=== PATIENT | male | born 1970 | race Caucasian/White ===

== ENCOUNTER 2018-07-07 20:56 | Inpatient (IN) | payer BC ==
[~2018-07-07] VITALS: Ht 180.3 cm; Wt 80.0 kg
--- NOTE | 2018-07-07 21:05 | NUR ---
BIB [facility] FOR ETOH INTOXICATION, PATIENT STATED HAD TOO MUCH TO DRINK, AND HAD A SLIP AND FALL. PATIENT STATES DID NOT HIT HIS HEAD, PATIENT DENIES LOSS OF CONSCIOUSNESS.
[2018-07-07] MEDS ORDERED: AMLO10TA7 PO (21:08)
[2018-07-07] MEDS ORDERED: ONDANSETRON 4 MG/2 ML VIAL IV ONE (21:30)
[2018-07-07] MEDS ORDERED: IV NORMAL SALINE 1000 ML BAG IV ONE (21:30)
[2018-07-07 21:31] LABS: BASOPHILS # (AUTO) 0.1 K/uL (0.0-8.0); BASOPHILS % (AUTO) 0.4 % (0.0-2.0); EOSINOPHILS % (AUTO) 0.2 % (0.0-7.0); HEMATOCRIT 43.4 % (36.7-47.1); HEMOGLOBIN 14.5 g/dL (12.5-16.3); LYMPHOCYTES # (AUTO) 2.5 K/uL (20.0-40.0); LYMPHOCYTES % (AUTO) 17.9 % (20.5-51.5); MEAN CORPUSCULAR HEMOGLOBIN 28.5 uug (23.8-33.4); MEAN CORPUSCULAR HGB CONC 33 g/dL (32.5-36.3); MEAN CORPUSCULAR VOLUME 85.1 fL (73.0-96.2); MONOCYTES # (AUTO) 0.6 K/uL (2.0-10.0); MONOCYTES % (AUTO) 4.1 % (0.0-11.0); NEUTROPHILS # (AUTO) 10.9 K/uL (1.8-8.9); NEUTROPHILS % (AUTO) 77.4 % (38.5-71.5); PLATELET COUNT (AUTO) 233 K/uL (152-348); RED BLOOD CELL COUNT(AUTO) 5.09 MIL/uL (4.06-5.63)
[2018-07-07] MEDS ORDERED: ONDANSETRON 4 MG/2 ML VIAL ONE (21:35)
[2018-07-07 21:40] LABS: CREATININE 0.9 mg/dL (0.6-1.3); POTASSIUM 3.3 mmol/L (3.5-5.1)
[2018-07-07 21:46] LABS: BILIRUBIN,DIRECT 0.1 mg/dL (0.0-0.2); BILIRUBIN,TOTAL 0.2 mg/dL (0.2-1.0); TOTAL PROTEIN, SERUM 7.7 g/dL (6.4-8.2)
--- NOTE | 2018-07-07 21:49 | NUR ---
PATIENT RETURNED FROM CT SCAN.
--- NOTE | 2018-07-07 21:50 | NUR ---
PLACED PATIENT BACK ON MONITOR AND PULSE OX.
[2018-07-07] MEDS ORDERED: MORPHINE SULFATE 2 MG/1 ML DISP.SYRIN ONE (21:54)
[2018-07-07] MEDS ORDERED: MORPHINE SULFATE 2 MG/1 ML DISP.SYRIN IV ONE (22:00)
--- NOTE | 2018-07-07 22:07 | NUR ---
PATIENT TAKEN BACK TO CT SCAN AT THIS TIME.
[2018-07-07] MEDS ORDERED: OMEP20CA10 PO (22:40)
--- NOTE | 2018-07-07 22:41 | NUR ---
PATIENT RETURNED FROM CT SCAN, PLACED PATIENT ON PULSE OX AND MONITOR.
[2018-07-08] MEDS ORDERED: ONDANSETRON 4 MG/2 ML VIAL IV PRN (00:15)
[2018-07-08] MEDS ORDERED: LORAZEPAM 2 MG/1 ML VIAL IV PRN (00:15)
[2018-07-08] MEDS ORDERED: ACETAMINOPHEN 325 MG TABLET PO PRN (00:15)
--- NOTE | 2018-07-08 00:15 | NUR ---
Pt. admitted to TELE , under care of Dr. WILSON Belongs List completed.
--- NOTE | 2018-07-08 00:30 | NUR ---
RECEIVED PT FROM ER VIA [facility]. DX: LEFT HIP FRACTURE. UNDER NATALI WILSON DISTRIBUTION COLLECTION OPERATOR. BELONGING LIST DONE. ADMISSION PROCESS AND CARE PLAN INITIATED. INTERMEDIATE ASSESSMENT DONE. RECEIVED PT WITH CERVICAL COLLAR. PT SHOW SNO ACUTE DISTRESS. WILL CONTINUE TO MONITOR.
[2018-07-08 01:05] VITALS: BP 136/89
[2018-07-08] MEDS: POTASSIUM CHLORIDE 50 ML IV SCH ×2 (01:18→03:03)
[2018-07-08] MEDS: IV NS 1000 ML 1,000 ML IV PRN ×2 (01:18→17:45)
[2018-07-08] MEDS: MORPHINE SULFATE 2 MG/1 ML DISP.SYRIN IV PRN ×2 (01:31→06:37)
[2018-07-08] MEDS ORDERED: POTASSIUM CHLORIDE 0 ML ONE (01:52)
[2018-07-08 05:35] VITALS: BP 113/76
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
--- NOTE | 2018-07-08 06:27 | NUR ---
PT SLEPT INTERMITTENTLY. PT WAKING UP AND ASKING WHAT HAPPENED TO HIM. PT IN NO ACUTE DISTRESS BUT COMPLAINING OF LEFT HIP PAIN. MORPHINE GIVEN TWICE ON MY SHIFT FOR 10/10 PAIN SCALE. PT TOLERATED IT WELL. PT TOLERATED THE PRESCRIBED MEDICATION. SAFETY AND COMFORT PROVIDED. WILL ENDORSE ACCORDINGLY TO INCOMING NURSE FOR CONTINUITY OF CARE.
[2018-07-08 06:38] LABS: BASOPHILS % (AUTO) 0.3 % (0.0-2.0); EOSINOPHILS % (AUTO) 0.2 % (0.0-7.0); HEMATOCRIT 37.2 % (36.7-47.1); HEMOGLOBIN 12.6 g/dL (12.5-16.3); LYMPHOCYTES # (AUTO) 1.6 K/uL (20.0-40.0); LYMPHOCYTES % (AUTO) 20.7 % (20.5-51.5); MEAN CORPUSCULAR HGB CONC 34 g/dL (32.5-36.3); MEAN CORPUSCULAR VOLUME 85.6 fL (73.0-96.2); MONOCYTES # (AUTO) 0.6 K/uL (2.0-10.0); MONOCYTES % (AUTO) 7.6 % (0.0-11.0); NEUTROPHILS # (AUTO) 5.7 K/uL (1.8-8.9); NEUTROPHILS % (AUTO) 71.2 % (38.5-71.5); PLATELET COUNT (AUTO) 256 K/uL (152-348); RED BLOOD CELL COUNT(AUTO) 4.35 MIL/uL (4.06-5.63)
[2018-07-08 06:56] LABS: CREATININE 0.8 mg/dL (0.6-1.3); MAGNESIUM 1.5 mg/dL (1.8-2.4); POTASSIUM 3.8 mmol/L (3.5-5.1)
[2018-07-08] MEDS: FOLIC ACID 1 MG TABLET PO SCH (08:01)
[2018-07-08] MEDS: THIAMINE HCL 100 MG TABLET PO SCH (08:01)
[2018-07-08] MEDS: HYDROCODONE/APAP 5-325MG TABLET PO PRN ×2 (08:04→16:47)
[2018-07-08] MEDS: HYDROMORPHONE 2 MG/1 ML DISP.SYRIN IV PRN ×3 (10:35→19:51)
[2018-07-08 11:17] VITALS: BP 126/81
[2018-07-08] MEDS: MAGNESIUM SULFATE/D5W 100 ML IV SCH ×2 (11:27→12:47)
[2018-07-08] MEDS: AMLODIPINE 10 MG TABLET PO SCH (12:15)
--- NOTE | 2018-07-08 12:53 | NUR ---
Resting comfortably. no distress noted. refused amlodipine stated he feels okay and that he does not take it everyday. educated pt on medication importance but still refused. will cont to monitor.
[2018-07-08 15:04] VITALS: BP 136/88
--- NOTE | 2018-07-08 19:30 | NUR ---
PATIENT ALERT ORIENTED, NO SOB NO CHEST PAIN, CONT ON PAIN MANAGEMENT OF LEFT HIP. PATIENT REFUSED TO SIGNED SURGICAL CONSENT WITHOUT TALKING TO DR. BEAULIEU IN PERSON. INSTRUCTED PATIENT THAT HE NEEDS TO BE NPO AFTER MIDNIGHT. PATIENT ABLE TO FOLLOW INSTRUCTIONS. PATIENT WEARS NECK BRACE ON AND OFF. CONTINUE TO ENCOURAGE TO WEAR HIS NECK BRACE. CONT TO MONITOR.
[2018-07-08 20:00] VITALS: BP 130/86
[2018-07-09] VITALS (7 sets, daily range): BP systolic 122–152; BP diastolic 79–101
[2018-07-09] MEDS: HYDROMORPHONE 2 MG/1 ML DISP.SYRIN IV PRN ×5 (00:33→20:31)
[2018-07-09] MEDS: IV NS 1000 ML 1,000 ML IV PRN (04:36)
--- NOTE | 2018-07-09 06:26 | NUR ---
PATIENT PRE OFF CHECKLIST WAS DONE, REMAINS ON NPO, CONT ON PAIN MANAGEMENT. ENDORSED TO NEXT SHIFT REGARDING REFUSAL TO SIGNED SURGICAL CONSENT. CALL LIGHT WITHIN REACH.
[2018-07-09] MEDS: PANTOPRAZOLE SODIUM 40 MG TABLET.DR PO SCH (06:35)
[2018-07-09 06:37] LABS: BASOPHILS % (AUTO) 0.5 % (0.0-2.0); EOSINOPHILS % (AUTO) 0.7 % (0.0-7.0); HEMATOCRIT 32.5 % (36.7-47.1); HEMOGLOBIN 11.2 g/dL (12.5-16.3); LYMPHOCYTES # (AUTO) 1.8 K/uL (20.0-40.0); LYMPHOCYTES % (AUTO) 26.3 % (20.5-51.5); MEAN CORPUSCULAR HEMOGLOBIN 29.6 uug (23.8-33.4); MEAN CORPUSCULAR HGB CONC 34 g/dL (32.5-36.3); MONOCYTES # (AUTO) 0.6 K/uL (2.0-10.0); MONOCYTES % (AUTO) 9.6 % (0.0-11.0); NEUTROPHILS # (AUTO) 4.2 K/uL (1.8-8.9); NEUTROPHILS % (AUTO) 62.9 % (38.5-71.5); PLATELET COUNT (AUTO) 210 K/uL (152-348); RED BLOOD CELL COUNT(AUTO) 3.78 MIL/uL (4.06-5.63); WHITE BLOOD COUNT (AUTO) 6.7 K/uL (3.6-10.2)
[2018-07-09 06:48] LABS: *BILIRUBIN,URIN NEGATIVE (NEGATIVE); *CLARITY,URINE CLEAR (CLEAR); *COLOR,URINE YELLOW (YELLOW); *KETONES,URINE NEGATIVE (NEGATIVE); *UROBILINOGEN,URINE 0.2 E.U./dl (NORMAL); LEUKOCYTE ESTERASE ,URINE NEGATIVE (NEGATIVE); NITRITE, URINE NEGATIVE (NEGATIVE); UGLUCOSE NEGATIVE (NEGATIVE)
[2018-07-09 06:49] LABS: CREATININE 0.8 mg/dL (0.6-1.3); MAGNESIUM 1.9 mg/dL (1.8-2.4); PHOSPHOROUS 2.5 mg/dL (2.5-4.9); POTASSIUM 4.5 mmol/L (3.5-5.1)
[2018-07-09 07:03] LABS: *BLOOD, URINE TRACE LYSED (NEGATIVE)
[2018-07-09 07:05] LABS: MUCUS,URINE FEW /LPF (0-FEW); SQUAMOUS EPITHELIAL CELL,UR NONE SEEN /HPF (NONE SEEN)
[2018-07-09 07:06] LABS: BACTERIA,URINE NONE SEEN /HPF (NONE SEEN); RBC,URINE 0-3 /HPF (0-3); WBC,URINE 0-3 /HPF (0-3)
[2018-07-09] MEDS ORDERED: POLYMYXIN B SULFATE 500,000 UNITS, BACITRACIN 50,000 UNITS, NORMAL SALINE 20 ML MC ONE ×3 (07:15)
[2018-07-09] MEDS ORDERED: MIDAZOLAM HCL 2 MG/2 ML VIAL ONE (08:13)
[2018-07-09] MEDS ORDERED: HYDROMORPHONE 2 MG/1 ML DISP.SYRIN ONE (08:13)
[2018-07-09] MEDS ORDERED: Medication Not On Formulary EA (Omeprazole 20 MG) PO SCH (09:00)
[2018-07-09] MEDS: FOLIC ACID 1 MG TABLET PO SCH (09:00)
[2018-07-09] MEDS: THIAMINE HCL 100 MG TABLET PO SCH (09:00)
[2018-07-09] MEDS: AMLODIPINE 10 MG TABLET PO SCH ×2 (09:00→12:03)
[2018-07-09] MEDS ORDERED: FENTANYL CITRATE 100 MCG/2 ML AMPUL ONE (10:52)
--- NOTE | 2018-07-09 11:43 | NUR ---
RETURNED FROM [facility] V/S STABLE ALERT ORIENTED LEFT LEG WARM COLOR GOOD PEDAL PULSE STRONG. NORMAL SENSATION, GOOD MOVEMENT. DENIES PAIN AT THIS TIME. DRESSINGS TO LEFT LEG CLEAN AND DRY.
[2018-07-09] MEDS ORDERED: MORPHINE SULFATE 4 MG/1 ML DISP.SYRIN IV PRN (12:30)
[2018-07-09] MEDS ORDERED: CYCL5TAB PO (14:27)
[2018-07-09] MEDS ORDERED: LEVO750T21 PO (14:28)
[2018-07-09] MEDS: HYDROCODONE/APAP 10-325 MG TABLET PO PRN ×2 (15:11→18:36)
[2018-07-09] MEDS ORDERED: CEFAZOLIN 1 G VIAL MC ONE (15:34)
[2018-07-09] MEDS ORDERED: PROPOFOL 200 MG/20 ML BOTTLE IV ONE (15:34)
[2018-07-09] MEDS ORDERED: ONDANSETRON 4 MG/2 ML VIAL IV ONE (15:34)
[2018-07-09] MEDS ORDERED: IV NORMAL SALINE 1000 ML BAG IV ONE (15:34)
[2018-07-09] MEDS ORDERED: KETOROLAC TROMETHAMINE 30 MG INJ IM ONE (15:34)
[2018-07-09] MEDS ORDERED: LIDOCAINE-MPF 2% 5 ML VIAL MC ONE (15:34)
[2018-07-09] MEDS ORDERED: SEVOFLURANE 250 ML BOTTLE IH ONE (15:34)
[2018-07-09] MEDS ORDERED: DEXAMETHASONE SOD PHOSPHATE 4 MG INJ IV ONE (15:34)
[2018-07-09] MEDS: CEFAZOLIN 1 G in PREMIXED 1 EACH IV SCH (18:19)
[2018-07-09] MEDS: POTASSIUM CHLORIDE 20 MEQ in IV D5 1/2 NS 1000 ML 1,000 ML IV PRN (18:20)
--- NOTE | 2018-07-09 19:40 | NUR ---
Received patient awake and alert in bed with friend at bedside. No signs of acute distress noted. No complaints of SOB. Complains of pain to the left leg, with PRN pain medication being effective. Dressing to the left thigh are intact and no drainage noted. IVF running on the left forearm. Safety measures initiated. Bed is low and locked, call light within reach. will continue to monitor.
[2018-07-10] MEDS: CEFAZOLIN 1 G in PREMIXED 1 EACH IV SCH (00:44)
[2018-07-10] MEDS: HYDROMORPHONE 2 MG/1 ML DISP.SYRIN IV PRN ×6 (00:44→22:20)
[2018-07-10 04:54] VITALS: BP 130/82
[2018-07-10] MEDS: PANTOPRAZOLE SODIUM 40 MG TABLET.DR PO SCH (06:08)
--- NOTE | 2018-07-10 06:20 | NUR ---
Patient slept intermittently throughout shift. No signs of acute distress. No complaints of SOB, complained of pain with PRN pain medication given x3 and was effective. Surgical site with dressings are intact and no drainage noted. Pedal pulses are strong, patient able to move toes, no fever throughout shift. Last dose of Ancef was given. Safety measures given.
[2018-07-10 06:29] LABS: BASOPHILS % (AUTO) 0.3 % (0.0-2.0); EOSINOPHILS % (AUTO) 0.1 % (0.0-7.0); HEMATOCRIT 24.8 % (36.7-47.1); HEMOGLOBIN 8.6 g/dL (12.5-16.3); LYMPHOCYTES # (AUTO) 1.2 K/uL (20.0-40.0); LYMPHOCYTES % (AUTO) 19.6 % (20.5-51.5); MEAN CORPUSCULAR HEMOGLOBIN 29.6 uug (23.8-33.4); MEAN CORPUSCULAR HGB CONC 35 g/dL (32.5-36.3); MEAN CORPUSCULAR VOLUME 85.3 fL (73.0-96.2); MONOCYTES # (AUTO) 0.5 K/uL (2.0-10.0); MONOCYTES % (AUTO) 8.3 % (0.0-11.0); NEUTROPHILS # (AUTO) 4.3 K/uL (1.8-8.9); NEUTROPHILS % (AUTO) 71.7 % (38.5-71.5); PLATELET COUNT (AUTO) 187 K/uL (152-348); WHITE BLOOD COUNT (AUTO) 6.1 K/uL (3.6-10.2)
[2018-07-10 06:38] LABS: CREATININE 0.7 mg/dL (0.6-1.3); MAGNESIUM 1.7 mg/dL (1.8-2.4); PHOSPHOROUS 2.4 mg/dL (2.5-4.9)
--- NOTE | 2018-07-10 07:12 | NUR ---
patient in bed laying comfortably with HOB elevated. no SOB noted at this time, no c/o pain at this time, bed in low position with 2 side rails up, safety and comfort noted. will continue to monitor and continue treatment plan
[2018-07-10] MEDS: THIAMINE HCL 100 MG TABLET PO SCH (08:45)
[2018-07-10] MEDS: HYDROCODONE/APAP 10-325 MG TABLET PO PRN ×3 (08:45→19:48)
[2018-07-10] MEDS: FOLIC ACID 1 MG TABLET PO SCH (08:45)
[2018-07-10] MEDS: AMLODIPINE 10 MG TABLET PO SCH (08:47)
[2018-07-10] MEDS: POTASSIUM CHLORIDE 20 MEQ in IV D5 1/2 NS 1000 ML 1,000 ML IV PRN (10:56)
[2018-07-10 11:01] VITALS: BP 124/82
[2018-07-10] MEDS ORDERED: MAGNESIUM SULFATE/D5W 100 ML IV SCH (13:00)
[2018-07-10 15:01] VITALS: BP 117/77
[2018-07-10] MEDS ORDERED: NEUTRA PHOS PACKET PO ONE (16:15)
--- NOTE | 2018-07-10 17:45 | NUR ---
Patient transferred to [facility] for MRI.
--- NOTE | 2018-07-10 19:00 | NUR ---
Pt. returned from MRI in stable condition
--- NOTE | 2018-07-10 19:02 | NUR ---
patient still at [facility] for MRI
[2018-07-10 20:00] VITALS: BP 143/76
--- NOTE | 2018-07-10 20:00 | NUR ---
Received pt. Alert oriented x4. Pt. states he has pain in left leg. IV site in left forearm 20 gauge. IV is patent, intact. Pt. states he feels constipated and wants a laxative in the AM when PT is there so he can walk to the bathroom. Pt.'s left knee appears swollen from surgery. Surgeon is aware and removed fluid during surgery. Pt. refuses DVT pumps at this time. Call light within reach, bed in lowest position, 2 side rails up, bed locked, and call light within reach.
--- NOTE | 2018-07-10 21:00 | NUR ---
IV site was leaking, inserted new IV catheter on left forearm #20 gauge
[2018-07-11] MEDS: HYDROCODONE/APAP 10-325 MG TABLET PO PRN ×4 (01:04→21:37)
[2018-07-11] MEDS: HYDROMORPHONE 2 MG/1 ML DISP.SYRIN IV PRN ×5 (03:52→23:02)
[2018-07-11 05:10] VITALS: BP 126/75
--- NOTE | 2018-07-11 05:56 | NUR ---
Patient slept intermittently throughout shift. No signs of acute distress. No complaints of SOB. Complained of pain with PRN medication given x3 and was effective. MRI results received, will endorse to morning shift to follow up with MD. Safety measures given.
[2018-07-11 06:33] LABS: BASOPHILS % (AUTO) 0.5 % (0.0-2.0); EOSINOPHILS # (AUTO) 0.1 K/uL (0.0-0.7); EOSINOPHILS % (AUTO) 1.4 % (0.0-7.0); HEMATOCRIT 24.9 % (36.7-47.1); HEMOGLOBIN 8.5 g/dL (12.5-16.3); LYMPHOCYTES # (AUTO) 1.9 K/uL (20.0-40.0); LYMPHOCYTES % (AUTO) 29.2 % (20.5-51.5); MEAN CORPUSCULAR HEMOGLOBIN 29.3 uug (23.8-33.4); MEAN CORPUSCULAR HGB CONC 34 g/dL (32.5-36.3); MEAN CORPUSCULAR VOLUME 85.8 fL (73.0-96.2); MONOCYTES # (AUTO) 0.5 K/uL (2.0-10.0); MONOCYTES % (AUTO) 7.9 % (0.0-11.0); PLATELET COUNT (AUTO) 219 K/uL (152-348); WHITE BLOOD COUNT (AUTO) 6.5 K/uL (3.6-10.2)
[2018-07-11] MEDS: PANTOPRAZOLE SODIUM 40 MG TABLET.DR PO SCH (06:33)
[2018-07-11] MEDS: POTASSIUM CHLORIDE 20 MEQ in IV D5 1/2 NS 1000 ML 1,000 ML IV PRN ×2 (06:35→23:17)
[2018-07-11 06:48] LABS: CREATININE 0.7 mg/dL (0.6-1.3); MAGNESIUM 1.9 mg/dL (1.8-2.4); PHOSPHOROUS 3.5 mg/dL (2.5-4.9); POTASSIUM 3.9 mmol/L (3.5-5.1)
--- NOTE | 2018-07-11 07:22 | NUR ---
Received patient in bed with HOB elevated awake, alert and oriented. no SOB noted at this time . No c/o pain at this time, IV intact and patient , bed in low position and 2 side rails up . safety and comfort provided at all times. will continue to monitor and continue treatment.
[2018-07-11] MEDS: THIAMINE HCL 100 MG TABLET PO SCH (09:15)
[2018-07-11] MEDS: FOLIC ACID 1 MG TABLET PO SCH (09:15)
[2018-07-11] MEDS: AMLODIPINE 10 MG TABLET PO SCH (09:16)
[2018-07-11] MEDS: MAGNESIUM HYDROXIDE 30 ML LIQUID UDC PO PRN ×2 (09:16→12:37)
[2018-07-11 10:50] VITALS: BP 127/83
[2018-07-11] MEDS: Z GUARD REMEDY PASTE 57 GM TUBE TOP SCH ×2 (13:45→20:19)
[2018-07-11] MEDS ORDERED: Z GUARD REMEDY PASTE 57 GM TUBE TOP PRN (13:45)
[2018-07-11 15:26] VITALS: BP 139/83
--- NOTE | 2018-07-11 18:22 | NUR ---
Patient in bed with HOB elevated with no SOB noted at this time. visitor at bedside. No c/o pain at this time. IV intact and patient , on continuos IV fluid , bed in low position and 2 side rails up. safety and comfort provided at all times. will continue to monitor and continue treatment.
--- NOTE | 2018-07-11 19:20 | NUR ---
report received. Patient is AOx4, no bleeding from the incision site. Comfort and safety measures are in place, IV is patent and running fluids. Will continue to monitor.
[2018-07-11] MEDS: METHOCARBAMOL 750 MG TABLET PO SCH (19:37)
[2018-07-11 20:05] VITALS: BP 125/77
[2018-07-12] MEDS: HYDROCODONE/APAP 10-325 MG TABLET PO PRN ×2 (05:12→11:57)
[2018-07-12 05:51] VITALS: BP 129/79
[2018-07-12] MEDS: PANTOPRAZOLE SODIUM 40 MG TABLET.DR PO SCH (06:10)
--- NOTE | 2018-07-12 07:15 | NUR ---
RECEIVED PATIENT ON BED, AWAKE, AAOX4, NO ACUTE DISTRESS NOTED. IV ACCESS ON LEFT FOREARM #20 INTACT AND PATENT IVF INFUSING WELL. SURGICAL DRESSING ON LEFT HIP, UPPER LEG AND LOWER LEG, CLEAN AND DRY. PATIENT ABLE TO TRANSFER INDEPENDENTLY WITH STANDBY ASSIST AND AMBULATE WITH 4WW. HIP PAIN MANAGED WITH PRN PAIN MEDICATION.COMFORT MEASURES PROVIDED. CALL LIGHT WITHIN REACH. WILL CONTINUE TO MONITOR CLOSELY.
--- NOTE | 2018-07-12 07:55 | NUR ---
report given to the day shift JIMMY Hamm. Patient slept well, pain was managed with PRN meds. 2 prune juices given for constipation. Patient ambulated twice unassisted, tolerated well. Good mood in the morning, reports no BM so far, flatus present.
[2018-07-12] MEDS: HYDROMORPHONE 2 MG/1 ML DISP.SYRIN IV PRN ×2 (07:56→13:48)
[2018-07-12 08:01] LABS: CREATININE 0.7 mg/dL (0.6-1.3); PHOSPHOROUS 3.1 mg/dL (2.5-4.9)
[2018-07-12] MEDS: METHOCARBAMOL 750 MG TABLET PO SCH ×3 (08:03→17:00)
[2018-07-12] MEDS: THIAMINE HCL 100 MG TABLET PO SCH (08:03)
[2018-07-12] MEDS: FOLIC ACID 1 MG TABLET PO SCH (08:03)
[2018-07-12] MEDS: AMLODIPINE 10 MG TABLET PO SCH (08:05)
[2018-07-12 08:07] LABS: EOSINOPHILS # (AUTO) 0.1 K/uL (0.0-0.7); HEMOGLOBIN 8.8 g/dL (12.5-16.3); MONOCYTES # (AUTO) 0.5 K/uL (2.0-10.0); NEUTROPHILS # (AUTO) 4.7 K/uL (1.8-8.9)
[2018-07-12 08:17] LABS: BASOPHILS % (AUTO) 0.6 % (0.0-2.0); HEMATOCRIT 25.9 % (36.7-47.1); LYMPHOCYTES # (AUTO) 1.5 K/uL (20.0-40.0); LYMPHOCYTES % (AUTO) 22.4 % (20.5-51.5); MEAN CORPUSCULAR HEMOGLOBIN 29.1 uug (23.8-33.4); MEAN CORPUSCULAR HGB CONC 34 g/dL (32.5-36.3); MEAN CORPUSCULAR VOLUME 85.4 fL (73.0-96.2); MONOCYTES % (AUTO) 7.3 % (0.0-11.0); NEUTROPHILS % (AUTO) 67.7 % (38.5-71.5); RED BLOOD CELL COUNT(AUTO) 3.03 MIL/uL (4.06-5.63); WHITE BLOOD COUNT (AUTO) 6.9 K/uL (3.6-10.2)
[2018-07-12 08:19] LABS: PLATELET COUNT (AUTO) 290 K/uL (152-348)
[2018-07-12] MEDS: Z GUARD REMEDY PASTE 57 GM TUBE TOP SCH (08:35)
[2018-07-12 11:43] VITALS: BP 124/73
[2018-07-12] MEDS ORDERED: BISACODYL 10 MG SUPP.RECT RC ONE (12:00)
[2018-07-12] MEDS ORDERED: DOCUSATE SODIUM 250 MG CAPSULE PO SCH (12:00)
--- NOTE | 2018-07-12 12:15 | NUR ---
SEEN AND EXAMINED BY DULCE MARIA ALDRIDGE, PATIENT COMPLAINED OF NO BM FOR 5 DAYS. ORDERED COLACE 250 MG AND DULCOLAX SUPP, ORDERS NOTED AND CARRIED OUT.
[2018-07-12] MEDS ORDERED: HYDR-3326 PO (13:00)
[2018-07-12] MEDS ORDERED: FOLI1TAB16 PO (13:00)
[2018-07-12] MEDS ORDERED: DOCU250C14 PO (13:00)
[2018-07-12] MEDS ORDERED: METH500T PO (13:00)
--- NOTE | 2018-07-12 13:39 | NUR ---
WOUND CARE CONSULT: PT REFUSED SKIN ASSESSMENT. CURRENT ANDREA SCORE IS 17 AND PT CONTINENT PER NURSING STAFF. PT ALSO REFUSED Z GUARD PER NURSING STAFF. PT TO BE DISCHARGED TODAY.
--- NOTE | 2018-07-12 14:30 | NUR ---
PATIENT SPOKE WITH TIFF MARQUEZPHYSICAL THERAPY ASSISTANT, AGREED TO GO TO [facility]. UPDATED DISCHARGE PAPERS AND INSTRUCTIONS, PATIENT STILL REFUSED TO SIGN STATING "I'M NOT GOING TO SIGN BECAUSE I DO NOT AGREE WITH WHAT THAT SAYS", PATIENT DID AGREE TO TAKE DISCHARGE PICTURES, PICTURES TAKEN AND PLACED IN CHART. TITLE 1 TUTOR TIME BY AMBULANCE AT 1845. WILL CONTINUE TO MONITOR CLOSELY Addendum: 07/12/18 at 9936 by KARIE WHITLEY RN ENTRY @ 0218
--- NOTE | 2018-07-12 14:51 | NUR ---
PATIENT DISCHARGED, MEDICALLY STABLE YET REFUSES TO BE DISCHARGED WITNESSED BY MYSELF, DULCE MARIA LEIVA, TIFF RENO, TERRANCE RN ADMIN, AND RAKEL NURSING STARCH MANGLE TENDER. DISCHARGE PAPERS AND PRESCRIPTIONS GIVEN TO PATIENT, HE REFUSED TO SIGN DISCHARGE PAPERS AND BELONGINGS AND ALSO REFUSED DISCHARGE PICTURES. REMOVED IV SITE AND ID BAND, DISPOSED PROPERLY. SECURITY AT BEDSIDE WAITING FOR POLICE TO ESCORT PATIENT OUT OF HOSPITAL.
--- NOTE | 2018-07-12 14:59 | NUR ---
PATIENT ALSO REFUSED DISCHARGE INSTRUCTIONS AND MEDICATION EDUCATION FROM RX.
--- NOTE | 2018-07-12 16:30 | NUR ---
PATIENT SPOKE WITH TIFF MARQUEZAMBULANCE PARAMEDIC, AGREED TO GO TO [facility]. UPDATED DISCHARGE PAPERS AND INSTRUCTIONS, PATIENT STILL REFUSED TO SIGN STATING "I'M NOT GOING TO SIGN BECAUSE I DO NOT AGREE WITH WHAT THAT SAYS", PATIENT DID AGREE TO TAKE DISCHARGE PICTURES, PICTURES TAKEN AND PLACED IN CHART. DEHYDROGENATION OPERATOR HEAD TIME BY AMBULANCE AT 1845. WILL CONTINUE TO MONITOR CLOSELY Addendum: 07/12/18 at 1747 by KARIE WHITLEY RN BELONGINGS LIST COUNTED AND COMPLETED, PATIENT AGREED TO SIGN.
--- NOTE | 2018-07-12 17:15 | NUR ---
CALLED AND GAVE REPORT TO SPENCER MARQUEZ @ [facility] [phone]. INFORMED THEM MANAGER STORE TIME WILL BE AT 0638
--- NOTE | 2018-07-12 18:49 | NUR ---
AMBULANCE CALLED, WILL BE DELAYED BY 1 HOUR AND ARRIVE AT 1945. [facility] MADE AWARE.
--- NOTE | 2018-07-12 20:15 | NUR ---
Ambulance is here. Report given. Patient is on the gurney. Belongings were returned to the patient. Patient left the floor.
== END 2018-07-12 20:27 | DRG 481 ==
LOC: ER 20:56 → TELE3 07-08 00:19 → MEDSURG3 07-08 01:04
PROVIDERS: ADMIT Nurse Practitioner Acute Care; ATTEND Student in an Organized Health Care Education/Training Program
PROC: 0QS706Z Reposition Left Upper Femur with Intramedullary Internal Fixation Device, Open Approach (ICD-10-PCS; principal; 2018-07-09)
DX: S72.142A Displaced intertrochanteric fracture of left femur, initial encounter for closed fracture (principal); J98.11 Atelectasis; S72.21XA Displaced subtrochanteric fracture of right femur, initial encounter for closed fracture; W18.30XA Fall on same level, unspecified, initial encounter; Y92.89 Other specified places as the place of occurrence of the external cause; K21.9 Gastro-esophageal reflux disease without esophagitis; M50.322 Other cervical disc degeneration at C5-C6 level; M48.02 Spinal stenosis, cervical region; F10.129 Alcohol abuse with intoxication, unspecified; Y90.8 Blood alcohol level of 240 mg/100 ml or more; E87.6 Hypokalemia; F17.290 Nicotine dependence, other tobacco product, uncomplicated; E83.42 Hypomagnesemia; E83.51 Hypocalcemia; M48.12 Ankylosing hyperostosis [Forestier], cervical region; M62.838 Other muscle spasm; I10 Essential (primary) hypertension; E04.1 Nontoxic single thyroid nodule; M23.222 Derangement of posterior horn of medial meniscus due to old tear or injury, left knee; K59.03 Drug induced constipation; T39.95XA Adverse effect of unspecified nonopioid analgesic, antipyretic and antirheumatic, initial encounter; Y92.230 Patient room in hospital as the place of occurrence of the external cause; D64.9 Anemia, unspecified; D72.829 Elevated white blood cell count, unspecified; M22.40 Chondromalacia patellae, unspecified knee; M25.78 Osteophyte, vertebrae
CPT/HCPCS: 36415; 70030-TC; 70450; 71045; 72125; 73502; 73503; 73721; 83735; 84100; 84443; 85025; 93005; 97110; 97116; 97530; A4649; A4663; C1713; C1769; G0378; G0480; J0690; J1100; J1170; J1885; J2250; J2270; J2405; J3010; J3475; J3480; J3490; J7030